=== PATIENT | male | born 1985 | race Hispanic/Latino ===

== ENCOUNTER 2022-12-14 06:40 | Emergency (ER) | payer SELFPAY ==
[2022-12-14 07:03] LABS: Absolute Lymphocytes (CBC) 1.3 K/uL (0.7-4.9); Hematocrit 40.4 % (39.6-49.0); Lymphocytes % 14.1 % (15.3-44.8); MCV 92.7 fL (80-100); MPV 8.6 fL (7.6-11.3); Platelets 77 thou/uL (152-406); RBC Red Blood Cell Count 4.36 M/uL (4.33-5.43)
[2022-12-14] MEDS ORDERED: Ringers Lactate 1,000 ML IV ONE (07:08)
[2022-12-14] MEDS ORDERED: THIAMINE 200 MG/2 ML INJ ONE (07:08)
[2022-12-14] MEDS ORDERED: LORazepam 2 MG/ML VIAL ONE (07:08)
[2022-12-14 07:09] LABS: Protime INR 0.95
[2022-12-14] MEDS ORDERED: FOLIC ACID 5 MG/ML VIAL ONE (07:09)
[2022-12-14 07:22] LABS: ALT/SGPT 150 U/L (16-61); AST/SGOT 155 U/L (15-37); Albumin 4.1 g/dL (3.4-5.0); Alkaline Phosphatase 86 U/L (45-117); BUN Blood Urea Nitrogen 11 mg/dL (7-18); Bicarbonate 21 mEq/L (21-32); Bilirubin Direct 0.1 mg/dL (0-0.2); Bilirubin Indirect, Calculated 0.2 mg/dL (0.2-0.8); Bilirubin Total 0.3 mg/dL (0.2-1.0); Glomerular Filtration Rate 115 ml/min (=/>90); Glucose Level 121 mg/dL (74-106); Potassium 2.8 mEq/L (3.5-5.1); Protein, Total 7.7 g/dL (6.4-8.2); Sodium Level 138 mEq/L (136-145)
[2022-12-14] MEDS ORDERED: IBUPROFEN 400 MG TAB ONE (07:30)
[2022-12-14] MEDS ORDERED: D5 0.9 NS 0 ML IV ONE (07:31)
[2022-12-14 07:41] LABS: SARS-CoV-2 Antigen Rapid Res Negative (Negative)
[2022-12-14] MEDS ORDERED: CEFTRIAXONE 1000 MG/VIAL ONE (07:49)
[2022-12-14] MEDS ORDERED: NS KCL 20MEQ 1,000 ML IV ONE (07:49)
[2022-12-14] MEDS ORDERED: POTASSIUM 25 MEQ EFFERV TAB ONE (07:50)
--- NOTE | 2022-12-14 07:50 | ER ---
Nurse's Notes [facility] Name: Jens Okeefe Jr Age: 36 yrs Sex: Male : 1985 Arrival Date: 12/14/2022 Time: 06:40 Bed 15 Private MD: Diagnosis: Fever, unspecified;Alcohol abuse;Alcohol abuse with intoxication;Alcohol abuse with other alcohol-induced disorders;Essential (primary) hypertension;Hypokalemia Presentation: 12/14 06:51 Chief complaint: Patient states: i have abused ETOH for years. i have gone 1 week sober lg3 and i have started hearing voices. this has never happened before. Per EMS, neighbors called PD because pt was running around parking lot yelling at people who were not present. Coronavirus screen: Client denies travel out of the [place] in the last 14 days. At this time, the client does not indicate any symptoms associated with coronavirus-19. Ebola Screen: No symptoms or risks identified at this time. Initial Sepsis Screen: Does the patient meet any 2 criteria? RR > 20 per min. Temp <36.0*C (96.8*F)) or > 38.3*C (100.9*F). HR > 90 bpm. Does the patient have a suspected source of infection? No. Patient's initial sepsis screen is negative. Risk Assessment: Do you want to hurt yourself or someone else? Patient reports no desire to harm self or others. Onset of symptoms is unknown. 06:51 Method Of Arrival: EMS: [facility] 06:51 Acuity: AMEYA 3 lg3 Triage Assessment: 06:58 General: Appears in no apparent distress. comfortable, Behavior is cooperative, lg3 anxious. Pain: Denies pain. EENT: No deficits noted. No signs and/or symptoms were reported regarding the EENT system. Neuro: Mena Agitation-Sedation Scale (RASS): 0 - Alert and Calm Level of Consciousness is awake, alert, obeys commands, Oriented to person, place, time, situation, Reports hallucinations. Cardiovascular: No deficits noted. Denies chest pain, shortness of breath, Capillary refill < 3 seconds Clubbing of nail beds is absent JVD is absent. Respiratory: No deficits noted. Airway is patent Respiratory effort is even, Respiratory pattern is tachypnea. GI: No deficits noted. No signs and/or symptoms were reported involving the gastrointestinal system. : No deficits noted. No signs and/or symptoms were reported regarding the genitourinary system. Derm: Skin is intact, is healthy with good turgor, Skin is diaphoretic, Skin is normal, Skin temperature is warm. Musculoskeletal: No deficits noted. No signs and/or symptoms reported regarding the musculoskeletal system. Circulation, motion, and sensation intact. Range of motion: intact in all extremities. Historical: - Allergies: 06:58 No Known Allergies; lg3 - Home Meds: 06:58 None [Active]; lg3 - PMHx: 06:58 Hypertensive disorder; lg3 - PSHx: 06:58 None; lg3 - Immunization history:: Adult Immunizations up to date, Client reports having NOT received the Covid vaccine. - Social history:: Smoking status: Patient denies any tobacco usage or history of. Patient uses alcohol, patient/guardian reports chronic longstanding heavy alcohol consumption. Patient/guardian denies using street drugs. - Family history:: not pertinent. Screenin:15 [facility] ED Fall Risk Assessment (Adult) History of falling in the last 3 months, ko1 including since admission No falls in past 3 months (0 pts) Confusion or Disorientation No (0 pts) Intoxicated or Sedated No (0 pts) Impaired Gait No (0 pts) Mobility Assist Device Used No (0 pt) Altered Elimination No (0 pt) Score/Fall Risk Level 0 - 2 = Low Risk Oriented to surroundings, Maintained a safe environment, Educated pt \\T\\ family on fall prevention, incl call for assistance when getting out of bed, Assessed \\T\\ reinforced patient's understanding of fall precautions, Provided non-skid footwear, Hourly rounding (assess needs \\T\\ fall precautionary measures) done, Used ambulatory aids as needed (educated on \\T\\ assisted with), Used gait belt as appropriate. Abuse screen: Denies threats or abuse. Denies injuries from another. Nutritional screening: No deficits noted. Tuberculosis screening: No symptoms or risk factors identified. Assessment: 07:15 General: Appears in no apparent distress. comfortable, Behavior is cooperative, ko1 anxious. Pain: Denies pain. Neuro: No deficits noted. Mena Agitation-Sedation Scale (RASS): 0 - Alert and Calm. Cardiovascular: No deficits noted. Rhythm is sinus tachycardia. Respiratory: No deficits noted. GI: No deficits noted. : No deficits noted. EENT: Reports hearing voices. Derm: No deficits noted. Musculoskeletal: No deficits noted. 08:26 Reassessment: Patient reports hearing voices, they are not telling him to hurt himself ko1 or anyone else, they are just calling his name and wanting to talk to him "have conversation". He reports knowing there is no one there. Vital Signs: 06:51 BP 163 / 108; Pulse 114; Resp 21 S; Temp 101.1(O); Pulse Ox 99% on R/A; Weight 95.25 kg lg3 (R); Height 5 ft. 6 in. (R); Pain 0/10; 07:15 BP 156 / 99; Pulse 97; Resp 18; Pulse Ox 99% ; ko1 08:47 BP 164 / 100; Pulse 92; Resp 16; Temp 99; Pulse Ox 100% ; ko1 06:51 Body Mass Index 33.89 (95.25 kg, 167.64 cm) lg3 06:51 Pain Scale: Adult lg3 ED Course: 06:40 Inserted saline lock: 20 gauge in right antecubital area, using aseptic technique. kl Blood collected. 06:41 Patient arrived in ED. lg3 06:53 Karri Gaytan MD is Attending Physician. sp4 06:58 Triage completed. lg3 06:58 Arm band placed on right wrist. lg3 07:08 Ptt, Activated Sent. kl 07:08 Salicylate Sent. kl 07:08 PT-INR Sent. kl 07:08 Hepatic Function Sent. kl 07:08 ETOH Level Sent. kl 07:08 CBC with Diff Sent. kl 07:08 Basic Metabolic Panel Sent. kl 07:08 Acetaminophen Sent. kl 07:15 Attending Physician role handed off by Karri Gaytan MD maria c 07:15 Mendel Robles MD is Attending Physician. maria c 07:15 Fadumo Toussaint, CHRISTIAN is Primary Nurse. ko1 07:15 Patient has correct armband on for positive identification. Bed in low position. Call ko1 light in reach. Side rails up X2. Provided Education on: NA. nuclear monitoring technician on. Pulse ox on. Door closed. Noise minimized. Lights dimmed. Warm blanket given. 07:18 Influenza Screen (a \\T\\ B) Sent. ko1 07:18 SARS RAPID Sent. ko1 07:22 Chest Single View XRAY In Process Unspecified. EDMS 07:39 Phosphorus Sent. ko1 07:49 Redd Charles MD is Referral Physician. maria c 08:05 Blood Culture Adult (2) Sent. ko1 08:37 Urinalysis W/Microscopic Sent. ko1 08:37 Urine Drug Screen Sent. ko1 08:47 No provider procedures requiring assistance completed. IV discontinued, intact, ko1 bleeding controlled, No redness/swelling at site. Pressure dressing applied. Administered Medications: 07:07 Drug: Ativan IVP 2 mg Route: IVP; Site: right antecubital; 07:07 Drug: foLIC Acid IVPB 1 mg Route: IVPB; Site: right antecubital; kl 07:08 Drug: Lactated Ringers Solution IV 1000 ml Route: IV; Rate: 1000 bolus; Site: right kl antecubital; 07:08 Drug: Thiamine IV 100 mg Route: IV; Rate: bolus; Site: right antecubital; 07:21 Drug: Ibuprofen PO 800 mg Route: PO; ko1 07:29 Not Given (Duplicate Order): D5-NS IV 1000 ml IV at 125 ml/hr continuous maria c 07:42 Drug: Potassium PO Effervescent Tablet 50 mEq Route: PO; ko1 07:53 Drug: NS 0.9% with KCl IV 20 mEq/L 1000 ml Route: IV; Rate: 125 ml/hr; Site: right ko1 antecubital; 08:09 Drug: Rocephin IV 1 grams Route: IV; Rate: per protocol; Site: right antecubital; ko1 08:13 Drug: AZITHromycin PO 500 mg Route: PO; ko1 08:13 Drug: Librium - chlordiazePOXIDE PO 50 mg Route: PO; ko1 Medication: 07:15 VIS not applicable for this client. ko1 Outcome: 07:50 Discharge ordered by . maria c 08:53 Patient left the ED. ko1 Signatures: Dispatcher [employer] EDMS Haydee Quintero RN RN kl Anderson, Corey, MD MD cha Gibson, Lacie, RN RN lg3 Fadumo Toussaint RN RN ko1 Karri Gaytan MD MD sp4 Corrections: (The following items were deleted from the chart) 07:07 07:07 foLIC Acid IVPB 1 mg IVPB in left antecubital kl kl
--- NOTE | 2022-12-14 07:50 | EDPHYS ---
Physician Documentation [facility] Name: Jens Okeefe Jr Age: 36 yrs Sex: Male : 1985 Arrival Date: 12/14/2022 Time: 06:40 Bed 15 Private MD: ED Physician Mendel Robles HPI: 12/14 06:55 This 36 yrs old Male presents to ER via Unassigned with complaints of alcohol sp4 withdrawals . 07:01 36-year-old male with history of moderate to severe alcohol abuse up to 15 beers daily sp4 presents with auditory hallucinations. Patient states he has developed auditory hallucinations 1 day when he quit drinking alcohol. Patient also developed tremors felt unwell had dry heaves and called ambulance to come to the hospital. On presentation patient discovered to have fever 101.1 . . Historical: - Allergies: 06:58 No Known Allergies; lg3 - Home Meds: 06:58 None [Active]; lg3 - PMHx: 06:58 Hypertensive disorder; lg3 - PSHx: 06:58 None; lg3 - Immunization history:: Adult Immunizations up to date, Client reports having NOT received the Covid vaccine. - Social history:: Smoking status: Patient denies any tobacco usage or history of. Patient uses alcohol, patient/guardian reports chronic longstanding heavy alcohol consumption. Patient/guardian denies using street drugs. - Family history:: not pertinent. ROS: 07:01 Constitutional: Negative for chills, and weight loss, positive for fever, sp4 hallucinations, hearing voices, parameters, dry heaves, feeling unwell 07:01 All other systems are negative. Exam: 07:01 Constitutional: This is a well developed, well nourished patient who is awake, alert, sp4 patient is tremulous, feverish, anxious appearing, ill-appearing, Head/Face: Normocephalic, atraumatic. Eyes: Pupils equal round and reactive to light, extra-ocular motions intact. Lids and lashes normal. Conjunctiva and sclera are not injected. Cornea within normal limits. Periorbital areas with no swelling, redness, or edema. ENT: Nares patent. No nasal discharge, no septal abnormalities noted. Tympanic membranes are normal and external auditory canals are clear. Oropharynx with no redness, swelling, or masses, exudates, or evidence of obstruction, uvula midline. Mucous membranes moist. Neck: Trachea midline, no thyromegaly or masses palpated, and no cervical lymphadenopathy. Supple, full range of motion without nuchal rigidity, or vertebral point tenderness. Chest/axilla: Normal chest wall appearance and motion. Nontender with no deformity. No lesions are appreciated. Cardiovascular: Regular tachycardia , with a normal S1 and S2. No gallops, murmurs, or rubs. Normal PMI, no JVD. No pulse deficits. Respiratory: Lungs have equal breath sounds bilaterally, clear to auscultation and percussion. No rales, rhonchi or wheezes noted. No increased work of breathing, no retractions or nasal flaring. Abdomen/GI: Soft, non-tender, with normal bowel sounds. No distension or tympany. No guarding or rebound. No evidence of tenderness throughout. Back: No spinal tenderness. No costovertebral tenderness. Skin: Warm, dry with normal turgor. Normal color with no rashes, no lesions, and no evidence of cellulitis. MS/ Extremity: Pulses equal, no cyanosis. Neurovascular intact. Full, normal range of motion. Neuro: Awake and alert, GCS 15, oriented to person, place, time, and situation. Cranial nerves II-XII grossly intact. Motor strength 5/5 in all extremities. Sensory grossly intact. Psych: Awake, alert, with orientation to person, place. Patient is tremulous, anxious appearing, reports active auditory hallucinations. 07:52 Neck: External neck: is normal, no acute changes, ROM/movement: is normal, no acute maria c changes, limited range of motion, is not appreciated, Meningeal signs: are not present, Kernig's sign is negative, Brudzinski's sign is negative, nuchal rigidity, is not appreciated. 07:53 ECG was reviewed by the Attending Physician. maria c Vital Signs: 06:51 BP 163 / 108; Pulse 114; Resp 21 S; Temp 101.1(O); Pulse Ox 99% on R/A; Weight 95.25 kg lg3 (R); Height 5 ft. 6 in. (R); Pain 0/10; 07:15 BP 156 / 99; Pulse 97; Resp 18; Pulse Ox 99% ; ko1 08:47 BP 164 / 100; Pulse 92; Resp 16; Temp 99; Pulse Ox 100% ; ko1 06:51 Body Mass Index 33.89 (95.25 kg, 167.64 cm) lg3 06:51 Pain Scale: Adult lg3 MDM: 07:04 Differential Diagnosis altered mental status, sepsis, flu. Data reviewed: vital signs, 4 nurses notes, EMS record, old medical records, lab test result(s), EKG, radiologic studies, plain films. 07:04 Patient medically screened. [facility] 07:07 Transition of care: After a detail discussion of the patient's case, care is sp4 transferred to Mendel Robles MD. 12/14 06:49 Order name: Acetaminophen; Complete Time: 07:25 12/14 06:49 Order name: Basic Metabolic Panel; Complete Time: 07:25 12/14 06:49 Order name: CBC with Diff 12/14 06:49 Order name: ETOH Level; Complete Time: 07:25 12/14 06:49 Order name: Hepatic Function; Complete Time: 07:25 12/14 06:49 Order name: PT-INR; Complete Time: 07:25 12/14 06:49 Order name: Ptt, Activated; Complete Time: 07:25 12/14 06:49 Order name: Salicylate 12/14 06:49 Order name: Urine Drug Screen 12/14 06:57 Order name: Blood Culture Adult (2) [facility] 12/14 06:57 Order name: Urinalysis W/Microscopic [facility] 12/14 06:58 Order name: SARS RAPID; Complete Time: 07:46 [facility] 12/14 06:58 Order name: Influenza Screen (a \T\ B) [facility] 12/14 07:14 Order name: CBC Smear Scan EDIN 12/14 07:28 Order name: Phosphorus [facility] 12/14 06:57 Order name: Chest Single View XRAY [facility] 12/14 06:49 Order name: EKG; Complete Time: 06:49 12/14 07:47 Order name: Diet Heart Healthy; Complete Time: 07:48 [facility] 12/14 06:49 Order name: EKG - Nurse/Tech; Complete Time: 07:37 12/14 06:49 Order name: IV Saline Lock; Complete Time: 07:08 12/14 06:49 Order name: Labs collected and sent; Complete Time: 07:37 kl 12/14 06:49 Order name: Suicide Screening ([place]); Complete Time: 07:37 kl EC:53 Rate is 99 beats/min. Rhythm is regular. QRS [place] is Normal. ID interval is normal. QRS maria c interval is normal. QT interval is normal. No Q waves. T waves are Normal. No ST changes noted. Clinical impression: NSR w/ Non-specific ST/T Changes and No evidence of ischemia. Interpreted by me. Reviewed by me. Administered Medications: 07:07 Drug: Ativan IVP 2 mg Route: IVP; Site: right antecubital; kl 07:07 Drug: foLIC Acid IVPB 1 mg Route: IVPB; Site: right antecubital; kl 07:08 Drug: Lactated Ringers Solution IV 1000 ml Route: IV; Rate: 1000 bolus; Site: right kl antecubital; 07:08 Drug: Thiamine IV 100 mg Route: IV; Rate: bolus; Site: right antecubital; kl 07:21 Drug: Ibuprofen PO 800 mg Route: PO; ko1 07:29 Not Given (Duplicate Order): D5-NS IV 1000 ml IV at 125 ml/hr continuous maria c 07:42 Drug: Potassium PO Effervescent Tablet 50 mEq Route: PO; ko1 07:53 Drug: NS 0.9% with KCl IV 20 mEq/L 1000 ml Route: IV; Rate: 125 ml/hr; Site: right ko1 antecubital; 08:09 Drug: Rocephin IV 1 grams Route: IV; Rate: per protocol; Site: right antecubital; ko1 08:13 Drug: AZITHromycin PO 500 mg Route: PO; ko1 08:13 Drug: Librium - chlordiazePOXIDE PO 50 mg Route: PO; ko1 Disposition Summary: 12/14/22 07:50 Discharge Ordered Location: Home maria c Problem: new maria c Symptoms: have improved maria c Condition: Stable maria c Diagnosis - Fever, unspecified maria c - Alcohol abuse maria c - Alcohol abuse with intoxication maria c - Alcohol abuse with other alcohol-induced disorders maria c - Essential (primary) hypertension maria c - Hypokalemia maria c Followup: maria c - With: Private Physician - When: 2 - 3 days - Reason: Recheck today's complaints, Continuance of care, Re-evaluation by your physician Followup: maria c - With: Redd Charles MD - When: 2 - 3 days - Reason: Recheck today's complaints, Re-evaluation by your physician Discharge Instructions: - Discharge Summary Sheet maria c - Alcohol Intoxication maria c - Potassium Content of Foods maria c - Hypertension, Adult maria c - Alcohol Intoxication, [id number] maria c - Hypertension, Adult, [id number] maria c - How to Take Your Blood Pressure, [id number] maria c - Aspirin and Your Heart maria c - Fever, Adult, [id number] maria c - Hypokalemia maria c - Managing Your Hypertension [facility] Forms: - Medication Reconciliation Form [facility] - Thank You Letter maria c - Antibiotic Education maria c - Prescription Opioid Use amria c - Patient Portal Instructions [facility] - Leadership Thank You Letter [facility] Prescriptions: - chlordiazepoxide HCl 25 mg Oral capsule - take 1 capsule by ORAL route 4 times per day as needed for anxiety; 28 capsule; maria c Refills: 0, Product Selection Permitted - Potassium Chloride 20 meq Oral Packet - take 1 packet by ORAL route once daily 1 packet in 6 (six) ounces of water or maria c juice; Take after meal; 30 packet; Refills: 0, Product Selection Permitted - Zithromax Z-Denilson 250 mg Oral Tablet - take 1 tablet by ORAL route as directed for 5 days Day 1 - take two (2) tablets maria c one time. Day 2, 3, 4 , 5 take one (1) tablet once daily.; 6 tablet; Refills: 0, Product Selection Permitted Signatures: Dispatcher [employer] Haydee Marks RN RN kl Anderson, Corey, MD MD cha Gibson, Lacie, RN RN lg3 Fadumo Toussaint RN RN ko1 Karri Gaytan MD MD sp4
[2022-12-14 07:54] LABS: Blood Morphology Comment NOT SEEN (NOT SEEN); Platelet Estimate DECR; White Blood Cell Scan OK (OK)
--- NOTE | 2022-12-14 08:12 | RAD REPORT ---
EXAM DESCRIPTION: Narat Single View12/14/2022 7:21 am CLINICAL HISTORY: CHEST PAIN COMPARISON: CHEST SINGLE VIEW dated 04/03/2014 TECHNIQUE: Portable AP view of the chest. FINDINGS: The lungs are clear. No pneumothorax or effusion. The cardiomediastinal contours are unrem arkable. IMPRESSION: No acute cardiopulmonary process.
[2022-12-14] MEDS ORDERED: chlordiazePOXIDE HCl 25 MG CAP ONE (08:22)
[2022-12-14] MEDS ORDERED: AZITHROMYCIN 250 MG TAB ONE (08:23)
[2022-12-14 08:48] LABS: Specific Gravity 1.017 (1.005-1.030); Urine Bacteria <20 /HPF (<20); Urine Bilirubin NEGATIVE (Negative); Urine Blood Negative (Negative); Urine Clarity Clear (Clear); Urine Color Light-Yellow (Yellow); Urine Glucose 1+ (Negative); Urine Mucus 2+ /HPF (None Seen); Urine Protein TRACE (Negative); Urine RBC <5 /HPF (None Seen); Urine Urobilinogen Normal (Normal); Urine pH 5.5 (5.0-7.0)
[2022-12-14 09:18] VITALS: BP 164/100; TEMP 99; O2SAT 100
[2022-12-14 09:32] LABS: Barbiturates NEGATIVE (NEGATIVE); Benzodiazepines NEGATIVE (NEGATIVE); Cocaine NEGATIVE (NEGATIVE); METHAMPHETAM NEGATIVE (NEGATIVE); Methadone NEGATIVE (NEGATIVE); Opiates NEGATIVE (NEGATIVE); Phencyclidine NEGATIVE (NEGATIVE); THC Cannibis NEGATIVE (NEGATIVE)
--- NOTE | 2022-12-14 18:25 | EKG ---
Test Date: 2022-12-14 Test Time: 07:33:25 Quality Control Engineering Technician: CRISS MEASUREMENT RESULTS: Intervals: Rate: 99 AL: 134 QRSD: 90 QT: 346 QTc: 444 [place]: P: 43 AL: 134 QRS: 66 T: 14 INTERPRETIVE STATEMENTS: Normal sinus rhythm Normal ECG Compared to ECG 04/03/2014 07:07:51 T-wave abnormality no longer present Electronically Signed On 12-14-22 18:24:36 CDT by Noah Teixeira
== END 2022-12-14 08:53 | disposition home or self-care (01) ==
LOC: ER 06:40
DX: F10.188 Alcohol abuse with other alcohol-induced disorder (principal); F10.129 Alcohol abuse with intoxication, unspecified; E87.6 Hypokalemia; I10 Essential (primary) hypertension; Z20.822 Contact with and (suspected) exposure to COVID-19
CPT/HCPCS: 36415; 71045; 80048; 80076; 80143; 80179; 80307; 81001; 82077; 84100; 85025; 85610; 85730; 87040; 87804; 87811; 93005; J0696; J3411; J3480; J7042; J7120

== ENCOUNTER 2023-10-22 21:46 | Emergency (ER) | payer SELFPAY ==
[2023-10-22] MEDS ORDERED: ONDANSETRON 4 MG/2 ML VIAL ONE (22:14)
[2023-10-22] MEDS ORDERED: NA CHLORIDE 0.9% 1,000 ML ONE (22:14)
[2023-10-22] MEDS ORDERED: ACETAMINOPHEN 500 MG TAB ONE (22:49)
[2023-10-22 23:00] LABS: Absolute Basophils 0.1 K/uL (0-0.5); Absolute Monocytes 0.7 K/uL (0.1-1.3); Absolute Neutrophil 11.4 K/uL (1.8-8.0); Basophils % 0.4 % (0-1.3); Hematocrit 38.5 % (39.6-49.0); Hemoglobin 12.9 g/dL (13.6-17.9); Lymphocytes % 7.8 % (15.3-44.8); MCH 30.9 pg (27.0-35.0); MCHC 33.6 g/dL (32.0-36.0); MCV 92.1 fL (80-100); MPV 7.9 fL (7.6-11.3); Monocytes % 5.4 % (3.3-12.3); Neutrophils % 86.4 % (41.7-73.7); Nucleated Red Blood Cells % 0.1 % (0-0); Platelets 142 thou/uL (152-406); RBC Red Blood Cell Count 4.18 M/uL (4.33-5.43); Red Cell Distribution Width 13.4 % (12.1-15.2)
[2023-10-22 23:03] LABS: PT Prothrombin Time 12.5 SECONDS (9.4-12.5); PTT, Activated Partial Thromb 26.5 SECONDS (24.3-36.9); Protime INR 1.14
[2023-10-22 23:17] LABS: ALT/SGPT 56 U/L (16-61); AST/SGOT 79 U/L (15-37); Albumin 3.9 g/dL (3.4-5.0); Albumin/Globulin Ratio 1.2 (1.1-1.8); Alkaline Phosphatase 83 U/L (45-117); Anion Gap 13.3 mEq/L (5.0-15.0); BUN Blood Urea Nitrogen 7 mg/dL (7-18); Bicarbonate 23 mEq/L (21-32); Bilirubin Direct 0.2 mg/dL (0-0.2); Bilirubin Indirect, Calculated 0.6 mg/dL (0.2-0.8); Bilirubin Total 0.8 mg/dL (0.2-1.0); Globulin 3.3 g/dL (2.3-3.5); Glomerular Filtration Rate 118 ml/min (=/>90); Glucose Level 103 mg/dL (74-106); Potassium 3.3 mEq/L (3.5-5.1); Protein, Total 7.2 g/dL (6.4-8.2); Sodium Level 142 mEq/L (136-145)
[2023-10-23 00:28] LABS: Band Neutrophils 5 % (0-1); Differential Total Cells Count 100; Lymphocytes 7 % (15-42); Monocytes 2 % (0-10); Segmented Neutrophils 85 % (40-80)
[2023-10-23 00:29] LABS: Blood Morphology Comment NOT SEEN (NOT SEEN); Platelet Estimate ADEQ
[2023-10-23 08:11] LABS: Barbiturates NEGATIVE (NEGATIVE); Benzodiazepines NEGATIVE (NEGATIVE); Cocaine NEGATIVE (NEGATIVE); METHAMPHETAM NEGATIVE (NEGATIVE); Methadone NEGATIVE (NEGATIVE); Opiates NEGATIVE (NEGATIVE); Phencyclidine NEGATIVE (NEGATIVE); THC Cannibis NEGATIVE (NEGATIVE)
[2023-10-23] MEDS ORDERED: ONDANSETRON 4 MG/2 ML VIAL ONE (11:04)
[2023-10-23] MEDS ORDERED: THIAMINE HCL 100 MG TABLET ONE (11:04)
[2023-10-23] MEDS ORDERED: NA CHLORIDE 0.9% 1,000 ML ONE (11:04)
--- NOTE | 2023-10-23 13:03 | EKG ---
Test Date: 2023-10-22 Test Time: 22:56:55 Nutrition Aides Teacher: SERGE MEASUREMENT RESULTS: Intervals: Rate: 85 OR: 138 QRSD: 94 QT: 388 QTc: 461 [place]: P: 46 OR: 138 QRS: 76 T: 56 INTERPRETIVE STATEMENTS: Normal sinus rhythm Normal ECG Compared to ECG 12/14/2022 07:33:25 No significant changes Electronically Signed On 10-23-23 13:01:35 CDT by Noah Teixeira
--- NOTE | 2023-10-23 13:39 | EDPHYS ---
Physician Documentation [facility] Name: Jens Okeefe Jr Age: 37 yrs Sex: Male : 1985 Arrival Date: 10/22/2023 Time: 21:46 Bed 7 Private MD: ED Physician Savage Echols HPI: 10/21 23:01 This 37 yrs old Male presents to ER via EMS with complaints of Alcohol ec2 Intoxication. 23:01 Patient arrives today for alcohol intoxication, reportedly was intoxicated, behind a ec2 gas station, covered in his own urine and feces. Patient reports no concerns, patient and she questions appropriately, denies any pain. Reports he drank approximately 24 beers today.. Historical: - Allergies: 22:11 No Known Allergies; vc1 - Home Meds: 22:11 None [Active]; vc1 - PMHx: 22:11 Hypertensive disorder; vc1 - PSHx: 22:11 None; vc1 - Immunization history:: Client reports having NOT received the Covid vaccine. Pneumococcal vaccine is up to date, Flu vaccine is not up to date. - Infectious Disease History:: Denies. - Social history:: Smoking status: Patient denies any tobacco usage or history of. ROS: 23:01 Constitutional: as per hpi ec2 Exam: 23:01 Constitutional: GEN: NAD Head: atraumatic Eyes: EOMI Ears: External ears are ec2 normal. CV: regular rate LUNGS: no respiratory distress ABD: non-distended SKIN: no evidence of rashes MSK: no evidence of trauma NEURO: moves all extremities equally. Psych: Cooperative individual was in no acute distress Vital Signs: 22:08 Pulse 92; Resp 19; Temp 98; Pulse Ox 99% ; Weight 81.65 kg; Height 5 ft. 6 in. ; vc1 23:00 BP 169 / 59; Pulse 83; Resp 17 S; Pulse Ox 99% on R/A; jw7 10/22 00:00 BP 102 / 57; Pulse 73; Resp 16 S; Pulse Ox 98% on R/A; jw7 00:59 BP 98 / 58; Pulse 74; Resp 15 S; Pulse Ox 99% on R/A; jw7 03:00 BP 110 / 68; Pulse 76; Resp 14 S; Pulse Ox 97% on R/A; jw7 05:57 BP 140 / 100; Pulse 84; Resp 16 S; Pulse Ox 99% on R/A; jw7 09:02 BP 134 / 78; Pulse 72; Resp 14; Pulse Ox 99% ; ko1 10/21 22:08 Body Mass Index 29.05 (81.65 kg, 167.64 cm) vc1 MDM: 10/21 22:09 Patient medically screened. ec2 23:01 Data reviewed: vital signs. ED course: Patient arrives today for evaluation of alcohol ec2 intoxication. Examination remarkable for well-appearing nontoxic dividual who is cooperative in no acute distress and is not combative. Will obtain lab work, EKG. Will evaluate for electrolyte disturbances, arrhythmia, anemia, alcohol intoxication.. 23:04 ED course: EKG obtained, independently reviewed and interpreted by me, shows normal ec2 sinus rhythm, rate of 85, no acute ST segment elevations, intervals are nonconcerning. . 10/22 00:41 ED course: Metabolic profile shows slight hypokalemia, LFTs are nonactionable, alcohol ec2 level elevated at 408, CBC is nonactionable. . 05:55 ED course: On reassessment patient hoa clinically intoxicated. Will sign patient out ec2 to oncoming physician with pending clinical sobering and reassessment.. 07:11 Transition of care: After a detail discussion of the patient's case, care is ec2 transferred to Savage Echols MD. 17:36 ED course: Patient presents to the ED with alcohol tox occasion, I assumed care at rt shift change. Patient metabolized alcohol, is able to ambulate without difficulty. No indications for admission at this time, stable for outpatient care.. 10/21 22:54 Order name: Basic Metabolic Panel; Complete Time: 00:41 EDNY 10/21 22:54 Order name: Liver (Hepatic) Function; Complete Time: 00:41 EDNY 10/21 22:54 Order name: Acetaminophen Level; Complete Time: 00: EDNY 10/21 22:54 Order name: Alcohol Serum/Plasma; Complete Time: 00:41 EDNY 10/21 22:54 Order name: Salicylates Level; Complete Time: 00:41 EDNY 10/21 22:54 Order name: CBC with Automated Diff; Complete Time: 00:41 EDNY 10/21 22:54 Order name: Protime (+INR); Complete Time: 00:41 EDMS 10/21 22:54 Order name: PTT, Activated Partial Thromb; Complete Time: 00:41 EDMS 10/21 23:04 Order name: Manual Differential; Complete Time: 00:41 EDMS 10/22 07:59 Order name: Urine Drug Screen; Complete Time: 10:42 EDMS 10/22 11:56 Order name: ETOH Level; Complete Time: 12:47 rt 10/21 22:10 Order name: EKG; Complete Time: 08:51 ec2 10/21 22:10 Order name: EKG - Nurse/Tech; Complete Time: 22:59 ec2 10/21 22:10 Order name: IV Saline Lock; Complete Time: 22:38 ec2 10/21 22:10 Order name: Labs collected and sent; Complete Time: 22:38 ec2 10/22 05:25 Order name: Misc. Order: ambulate; Complete Time: 05:53 ec2 Administered Medications: 10/21 22:38 Drug: NS 0.9% IV 1000 ml IV at 1 bolus Per protocol; 1000 mL bolus Route: IV; Rate: 1 jw7 bolus; Site: right antecubital; 10/22 05:53 Follow up: Response: No adverse reaction; IV Status: Completed infusion; IV Intake: jw7 1000ml 10/21 22:38 Drug: Ondansetron IVP 4 mg IVP once; over 2 minutes Route: IVP; Site: right antecubital;jw7 10/22 05:53 Follow up: Response: No adverse reaction; Marked relief of symptoms jw7 10/21 22:59 Drug: Acetaminophen PO 1000 mg PO once Route: PO; lg3 10/22 05:53 Follow up: Response: No adverse reaction; Marked relief of symptoms 7 11:18 Drug: Ondansetron IVP 4 mg IVP once; over 2 minutes Route: IVP; Site: right antecubital;ld1 11:18 Drug: NS 0.9% IV 1000 ml IV at 1 bolus Per protocol; 1000 mL bolus Route: IV; Rate: 1 ld1 bolus; Site: right antecubital; 11:18 Drug: Thiamine PO 100 mg PO once Route: PO; ld1 Disposition Summary: 10/23/23 13:38 Discharge Ordered Notes: Location: Home rt Condition: Stable rt Diagnosis - Alcohol abuse with intoxication, uncomplicated rt Followup: ec2 - With: Private Physician - When: - Reason: Re-evaluation by your physician Discharge Instructions: - Discharge Summary Sheet ec2 - Alcohol Intoxication ec2 Forms: - Medication Reconciliation Form rt - Antibiotic Education rt - Prescription Opioid Use rt - Patient Portal Instructions rt - Leadership Thank You Letter rt Signatures: Dispatcher [employer] EDMS Ruth Demarco RN RN lg3 Keira Hoffman RN RN ld1 Lisa Lund RN RN vc1 Nelida Merritt RN RN jw7 Savage Echols MD MD rt Scott Holm MD MD ec2 Corrections: (The following items were deleted from the chart) 11:25 08:51 SALICYLATE+C.LAB.BRZ ordered. EDMS EDMS 11:25 10:43 ETHANOL+C.LAB.BRZ ordered. EDMS EDMS 11:26 08:51 CBC+H.LAB.BRZ ordered. EDMS EDMS 11:26 08:51 PROTIME (+INR)+COAG.LAB.BRZ ordered. EDMS EDMS 11:26 08:51 PTT, ACTIVATED+COAG.LAB.BRZ ordered. EDMS EDMS 11:27 08:51 ETHANOL+C.LAB.BRZ ordered. EDMS EDMS 11:27 08:51 URINE DRUG SCREEN+UC.LAB.BRZ ordered. EDMS EDMS 11:28 08:51 BASIC METABOLIC PANEL+C.LAB.BRZ ordered. EDMS EDMS 11:29 08:51 ACETAMINOPHEN+C.LAB.BRZ ordered. EDMS EDMS 11:29 08:51 HEPATIC FUNCTION+C.LAB.BRZ ordered. EDMS EDMS
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
[2023-10-23 19:39] VITALS: TEMP 98; O2SAT 99
[2023-10-23 20:01] VITALS: BP 134/78
== END 2023-10-23 13:42 | disposition home or self-care (01) ==
LOC: ER 21:46
DX: F10.129 Alcohol abuse with intoxication, unspecified (principal)
CPT/HCPCS: 36415; 80048; 80076; 80143; 80179; 80307; 82077; 85025; 85610; 85730; 93005; J2405; J7030

== ENCOUNTER 2024-09-03 21:34 | Emergency (ER) | payer SELFPAY ==
[2024-09-03] MEDS ORDERED: ONDANSETRON 4 MG/2 ML VIAL ONE (21:39)
[2024-09-03] MEDS ORDERED: KETAMINE HCL IN 0.9 % NACL 50 MG/5 ML SYRINGE IV ONE ×2 (21:51→22:23)
[2024-09-03 22:01] LABS: Absolute Basophils 0.1 K/uL (0-0.5); Absolute Monocytes 0.5 K/uL (0.1-1.3); Absolute Neutrophil 11.3 K/uL (1.8-8.0); Hemoglobin 15.9 g/dL (13.6-17.9); Monocytes % 3.4 % (3.3-12.3)
[2024-09-03 22:02] LABS: PT Prothrombin Time 12.8 SECONDS (10-13.0); PTT, Activated Partial Thromb 25.4 SECONDS (27.2-37.4); Protime INR 1.13
[2024-09-03 22:12] LABS: Absolute Lymphocytes (CBC) 3.9 K/uL (0.7-4.9); Basophils % 0.6 % (0-1.3); Hematocrit 45.9 % (39.6-49.0); Lymphocytes % 24.4 % (15.3-44.8); MCHC 34.6 g/dL (32.0-36.0); MCV 89.6 fL (80-100); MPV 8.4 fL (7.6-11.3); Neutrophils % 71.6 % (41.7-73.7); Nucleated Red Blood Cells % 0.3 % (0-0); Platelets 209 thou/uL (152-406); RBC Red Blood Cell Count 5.12 M/uL (4.33-5.43); Red Cell Distribution Width 13.8 % (12.1-15.2)
--- NOTE | 2024-09-03 22:20 | RAD REPORT ---
EXAM: CT brain without contrast HISTORY: CONFUSED COMPARISON: None TECHNIQUE: Multiple contiguous axial images were obtained and a CT of the brain without contrast. Sag ittal and coronal reformats were performed. FINDINGS: No evidence of hydrocephalus, intracranial hemorrhage, or extra-axial fluid collection. The brain is normal in morphology. The calvarium is intact. Left parietotemporal and right posterior parietal scalp swelling and hematom as. The visualized paranasal sinuses and mastoid air cells are essentially clear. IMPRESSION: No evidence of acute intracranial abnormality. EXAM: CT of the cervical spine without contrast HISTORY: CONFUSED COMPARISON: None TECHNIQUE: Multiple contiguous axial images were obtained in a CT of the cervical spine without contr ast. Sagittal and coronal reformats were performed. FINDINGS: The vertebral bodies demonstrate normal height and alignment. No evidence of acute fracture or subluxation.. No degenerative changes are present. No prevertebral soft tissue swelling is seen. The posterior facets are well aligned. Normal alignment of the skull base with the cervical spine is seen. The lung apices are unremarkable. IMPRESSION: No evidence of acute osseous abnormality of the cervical spine.
[2024-09-03] MEDS ORDERED: LEVETIRACETAM 500 MG/5 ML VIAL IV ONE (22:23)
[2024-09-03] MEDS ORDERED: THIAMINE 200 MG/2 ML INJ ONE (22:23)
[2024-09-03] MEDS ORDERED: MULTIVITAMINS 10 ML VIAL (INJ) IV ONE (22:23)
[2024-09-03] MEDS ORDERED: TDAP (DIPHTH,PERTUSS(ACELL),TET VAC) 0.5 ML VIAL IMVAC ONE (22:24)
[2024-09-03] MEDS ORDERED: TRANEXAMIC ACID 1,000 MG/10 ML VIAL IV ONE (22:24)
[2024-09-03] MEDS ORDERED: FOLIC ACID 5 MG/ML VIAL ONE (22:25)
[2024-09-03] MEDS ORDERED: NA CHLORIDE 0.9% 200 ML ONE (22:25)
[2024-09-03] MEDS ORDERED: NACHLORIDE 0.45% 0 ML IV ONE (22:25)
[2024-09-03] MEDS ORDERED: NA CHLORIDE 0.9% 1,000 ML ONE ×2 (22:25→23:49)
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
[2024-09-03 22:35] LABS: ALT/SGPT 87 U/L (16-61); AST/SGOT 91 U/L (15-37); Albumin 4.1 g/dL (3.4-5.0); Albumin/Globulin Ratio 1.1 (1.1-1.8); Alkaline Phosphatase 137 U/L (45-117); Anion Gap 15.8 mEq/L (5.0-15.0); BUN Blood Urea Nitrogen 14 mg/dL (7-18); Bicarbonate 22 mEq/L (21-32); Bilirubin Direct 0.2 mg/dL (0-0.2); Bilirubin Indirect, Calculated 0.4 mg/dL (0.2-0.8); Bilirubin Total 0.6 mg/dL (0.2-1.0); Globulin 3.8 g/dL (2.3-3.5); Glomerular Filtration Rate 48 ml/min (=/>90); Glucose Level 146 mg/dL (74-106); Potassium 3.8 mEq/L (3.5-5.1); Protein, Total 7.9 g/dL (6.4-8.2); Sodium Level 140 mEq/L (136-145)
[2024-09-03] MEDS ORDERED: ZIPRASIDONE MESYLA 20 MG/VIAL IM ONE (23:29)
[2024-09-03] MEDS ORDERED: WATER FOR INJ,STERILE 10 ML ONE (23:29)
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
[2024-09-03] MEDS ORDERED: LIDOCAINE 1% 20 ML MDV ONE (23:49)
[2024-09-04] MEDS ORDERED: MORPHINE 4 MG/ML SYR ONE (00:01)
[2024-09-04] MEDS ORDERED: LIDOCAINE 1% 20 ML MDV ONE (00:48)
[2024-09-04 00:52] LABS: Barbiturates NEGATIVE (NEGATIVE); Benzodiazepines POSITIVE (NEGATIVE); Cocaine NEGATIVE (NEGATIVE); METHAMPHETAM NEGATIVE (NEGATIVE); Methadone NEGATIVE (NEGATIVE); Opiates NEGATIVE (NEGATIVE); Phencyclidine NEGATIVE (NEGATIVE); THC Cannibis NEGATIVE (NEGATIVE)
[2024-09-04 10:35] VITALS: TEMP 97.5
[2024-09-04 10:46] VITALS: BP 104/83; O2SAT 98
== END 2024-09-04 01:39 | disposition short-term general hospital (02) ==
LOC: ER 21:34 → MERGE 21:34 → EDBD 21:34 → ER 09-04 01:39
DX: S06.0X9A Concussion with loss of consciousness of unspecified duration, initial encounter (principal); S01.81XA Laceration without foreign body of other part of head, initial encounter; S32.041A Stable burst fracture of fourth lumbar vertebra, initial encounter for closed fracture; F10.129 Alcohol abuse with intoxication, unspecified
CPT/HCPCS: 36415; 70450; 70486; 71260; 72125; 74177; 76377; 80048; 80076; 80143; 80179; 80307; 82077; 85025; 85610; 85730; 86850; 86900; 86901; 90715; 93005; J1953; J2003; J2405; J3411; J3486; J3490; J7030; Q9967